=== PATIENT | male | born 1975 | race Caucasian/White ===

== ENCOUNTER → 2017-04-09 | Outpatient (REF) | payer OTHER ==
[2017-04-09 20:25] LABS: ALBUMIN 3.8 GM/DL (3.2-5.2); ALBUMIN/GLOBULIN RATIO 1.15 (1.00-1.93); ALKALINE PHOSPHATASE 65 U/L (45-117); ALT/SGPT 43 U/L (12-78); ANION GAP 6 MEQ/L (8-16); AST/SGOT 23 U/L (15-37); BILIRUBIN,TOTAL 0.3 MG/DL (0.2-1.0); BLOOD UREA NITROGEN 14 MG/DL (7-18); CALCIUM LEVEL 8.8 MG/DL (8.5-10.1); CARBON DIOXIDE LEVEL 29 MEQ/L (21-32); CHLORIDE LEVEL 106 MEQ/L (98-107); CREATININE FOR GFR 1.23 MG/DL (0.70-1.30); GLOMERULAR FILTRATION RATE > 60.0 (>60); GLUCOSE, FASTING 85 MG/DL (70-105); POTASSIUM SERUM 4.4 MEQ/L (3.5-5.1); SODIUM LEVEL 141 MEQ/L (136-145); TOTAL PROTEIN 7.1 GM/DL (6.4-8.2); URIC ACID 8.6 MG/DL (3.5-7.2)
[2017-04-09 20:33] LABS: BASO # 0.1 K/mm3 (0.0-0.2); BASO % 0.6 % (0.0-1.0); EOS # 0.6 K/mm3 (0.0-0.50); EOS % 6.4 % (0.0-3.0); LARGE UNSTAINED CELL # 0.2 K/mm3 (0.0-0.4); LYMPH # 1.8 K/mm3 (1.5-4.5); LYMPH % 18.1 % (24.0-44.0); MEAN CORPUSCULAR HEMOGLOBIN 31.9 pg (27.0-33.0); MEAN CORPUSCULAR HGB CONC 34.7 g/dl (32.0-36.5); MONO # 0.8 K/mm3 (0.0-0.8); MONO % 7.4 % (0.0-5.0); NEUTROPHILS # 6.6 K/mm3 (1.8-7.7); NEUTROPHILS % 65.4 % (36.0-66.0); PLATELET COUNT, AUTOMATED 283 k/mm3 (150-450)
[2017-04-09 22:00] LABS: ERYTHROCYTE SEDIMENTATION RATE 6 mm/hr (0-15)
== END ==
LOC: M SFHCLERA 16:24
PROVIDERS: ATTEND Nurse Practitioner Family
DX: M79.672 Pain in left foot (principal)

== ENCOUNTER → 2017-04-09 | Outpatient (CLI) | payer OTHER ==
--- NOTE | 2017-04-09 17:14 | REP ---
LEFT FOOT, FOUR VIEWS: HISTORY: Pain. There is no acute fracture or dislocation. The joint spaces are normal in appearance. IMPRESSION: There is no acute fracture or dislocation. Signed by Breezy Melvin MD 04/10/2017 08:38 A
== END ==
LOC: M LRY 16:28
PROVIDERS: ATTEND Nurse Practitioner Family
DX: M79.672 Pain in left foot (principal)

== ENCOUNTER → 2019-11-26 | Outpatient (CLI) | payer OTHER ==
[2019-11-26 06:41] LABS: BASO # 0.1 10^3/uL (0.0-0.2); BASO % 0.6 % (0.0-1.0); EOS # 0.5 10^3/uL (0.0-0.5); HEMATOCRIT 47.2 % (42.0-52.0); HEMOGLOBIN 15.7 g/dl (13.5-17.5); LYMPH # 2.1 10^3/uL (1.5-5.0); LYMPH % 22.5 % (24.0-44.0); MEAN CORPUSCULAR HEMOGLOBIN 30.9 pg (27.0-33.0); MEAN CORPUSCULAR HGB CONC 33.3 g/dl (32.0-36.5); MEAN CORPUSCULAR VOLUME 92.9 fl (80.0-96.0); MONO # 0.9 10^3/uL (0.0-0.8); MONO % 9.8 % (0.0-5.0); NEUTROPHILS # 5.7 10^3/uL (1.5-8.5); NEUTROPHILS % 61.2 % (36.0-66.0); PLATELET COUNT, AUTOMATED 313 10^3/uL (150-450); RED BLOOD COUNT 5.08 10^6/uL (4.30-6.10); WHITE BLOOD COUNT 9.3 10^3/uL (4.0-10.0)
[2019-11-26 07:06] LABS: ALT/SGPT 43 U/L (12-78); BILIRUBIN,TOTAL 0.4 MG/DL (0.2-1.0); BLOOD UREA NITROGEN 15 MG/DL (7-18); CALCIUM LEVEL 9.5 MG/DL (8.5-10.1); CARBON DIOXIDE LEVEL 29 MEQ/L (21-32); CHLORIDE LEVEL 105 MEQ/L (98-107); CREATININE FOR GFR 1.23 MG/DL (0.70-1.30); GLOMERULAR FILTRATION RATE > 60.0 (>60); GLUCOSE, FASTING 98 MG/DL (70-100); POTASSIUM SERUM 4.3 MEQ/L (3.5-5.1); SODIUM LEVEL 142 MEQ/L (136-145); TOTAL PROTEIN 7.1 GM/DL (6.4-8.2); URIC ACID 8.4 MG/DL (3.5-7.2)
== END ==
LOC: M LAB 06:07 → MERGE 06:07
PROVIDERS: ATTEND Family Medicine
DX: M10.041 Idiopathic gout, right hand (principal)

== ENCOUNTER → 2020-08-08 | Outpatient (CLI) | payer OTHER ==
[2020-08-08 06:56] LABS: BASO # 0.1 10^3/uL (0.0-0.2); BASO % 0.8 % (0.0-1.0); EOS # 0.4 10^3/uL (0.0-0.5); EOS % 6.3 % (0.0-3.0); HEMATOCRIT 43.9 % (42.0-52.0); HEMOGLOBIN 15.1 g/dl (13.5-17.5); LYMPH # 1.9 10^3/uL (1.5-5.0); LYMPH % 29.2 % (24.0-44.0); MEAN CORPUSCULAR HEMOGLOBIN 30.6 pg (27.0-33.0); MEAN CORPUSCULAR HGB CONC 34.4 g/dl (32.0-36.5); MEAN CORPUSCULAR VOLUME 88.9 fl (80.0-96.0); MONO # 0.9 10^3/uL (0.0-0.8); MONO % 13.3 % (0.0-5.0); NEUTROPHILS # 3.2 10^3/uL (1.5-8.5); NEUTROPHILS % 49.8 % (36.0-66.0); PLATELET COUNT, AUTOMATED 297 10^3/uL (150-450); RED BLOOD COUNT 4.94 10^6/uL (4.30-6.10); WHITE BLOOD COUNT 6.5 10^3/uL (4.0-10.0)
[2020-08-08 07:33] LABS: ALBUMIN 3.6 GM/DL (3.2-5.2); ALT/SGPT 45 U/L (12-78); BILIRUBIN,TOTAL 0.5 MG/DL (0.2-1.0); BLOOD UREA NITROGEN 15 MG/DL (7-18); CALCIUM LEVEL 9.1 MG/DL (8.5-10.1); CARBON DIOXIDE LEVEL 28 MEQ/L (21-32); CHLORIDE LEVEL 108 MEQ/L (98-107); CREATININE FOR GFR 1.34 MG/DL (0.70-1.30); GLOMERULAR FILTRATION RATE > 60.0 (>60); GLUCOSE, FASTING 102 MG/DL (70-100); SODIUM LEVEL 142 MEQ/L (136-145); TOTAL PROTEIN 6.6 GM/DL (6.4-8.2); URIC ACID 4.4 MG/DL (3.5-7.2)
== END ==
LOC: M LAB 06:14
PROVIDERS: ATTEND Internal Medicine
DX: M1A.9XX1 Chronic gout, unspecified, with tophus (tophi) (principal)

== ENCOUNTER → 2021-01-23 | Outpatient (CLI) | payer OTHER ==
[2021-01-23 06:43] LABS: BASO # 0.1 10^3/uL (0.0-0.2); BASO % 0.7 % (0.0-1.0); EOS # 0.4 10^3/uL (0.0-0.5); EOS % 5.3 % (0.0-3.0); HEMATOCRIT 43.8 % (42.0-52.0); HEMOGLOBIN 14.7 g/dl (13.5-17.5); LYMPH % 27.4 % (24.0-44.0); MEAN CORPUSCULAR HEMOGLOBIN 30.1 pg (27.0-33.0); MEAN CORPUSCULAR HGB CONC 33.6 g/dl (32.0-36.5); MEAN CORPUSCULAR VOLUME 89.8 fl (80.0-96.0); MONO # 0.9 10^3/uL (0.0-0.8); MONO % 12.8 % (2.0-8.0); NEUTROPHILS # 3.9 10^3/uL (1.5-8.5); NEUTROPHILS % 53.3 % (36.0-66.0); PLATELET COUNT, AUTOMATED 278 10^3/uL (150-450); RED BLOOD COUNT 4.88 10^6/uL (4.30-6.10); WHITE BLOOD COUNT 7.3 10^3/uL (4.0-10.0)
[2021-01-23 07:17] LABS: ALBUMIN 3.9 GM/DL (3.2-5.2); ALT/SGPT 55 U/L (12-78); BILIRUBIN,TOTAL 0.5 MG/DL (0.2-1.0); BLOOD UREA NITROGEN 17 MG/DL (7-18); CALCIUM LEVEL 9.3 MG/DL (8.5-10.1); CARBON DIOXIDE LEVEL 27 MEQ/L (21-32); CHLORIDE LEVEL 107 MEQ/L (98-107); CREATININE FOR GFR 1.14 MG/DL (0.70-1.30); GLOMERULAR FILTRATION RATE > 60.0 (>60); GLUCOSE, FASTING 106 MG/DL (70-100); SODIUM LEVEL 141 MEQ/L (136-145); TOTAL PROTEIN 6.9 GM/DL (6.4-8.2); URIC ACID 4.6 MG/DL (3.5-7.2)
== END ==
LOC: M LAB 06:13
PROVIDERS: ATTEND Internal Medicine
DX: M1A.9XX1 Chronic gout, unspecified, with tophus (tophi) (principal)

== ENCOUNTER → 2023-01-29 | Outpatient (CLI) | payer OTHER ==
[2023-01-29 06:36] LABS: BASO # 0.1 10^3/uL (0.0-0.2); BASO % 0.6 % (0.0-1.0); EOS # 0.5 10^3/uL (0.0-0.5); EOS % 5.8 % (0.0-3.0); HEMATOCRIT 45.1 % (42.0-52.0); HEMOGLOBIN 15.6 g/dl (13.5-17.5); LYMPH # 2.3 10^3/uL (1.5-5.0); LYMPH % 28.7 % (24.0-44.0); MEAN CORPUSCULAR HEMOGLOBIN 31.3 pg (27.0-33.0); MEAN CORPUSCULAR HGB CONC 34.6 g/dl (32.0-36.5); MEAN CORPUSCULAR VOLUME 90.6 fl (80.0-96.0); MONO # 0.9 10^3/uL (0.0-0.8); MONO % 11.4 % (2.0-8.0); NEUTROPHILS # 4.2 10^3/uL (1.5-8.5); NEUTROPHILS % 52.9 % (36.0-66.0); PLATELET COUNT, AUTOMATED 282 10^3/uL (150-450); RED BLOOD COUNT 4.98 10^6/uL (4.30-6.10)
[2023-01-29 07:01] LABS: URIC ACID 4.5 MG/DL (3.7-9.2)
[2023-01-29 07:05] LABS: ALBUMIN 4.1 G/DL (3.2-5.2); ALKALINE PHOSPHATASE 59 U/L (46-116); ALT/SGPT 48 U/L (7.0-40); AST/SGOT 32 U/L (<34); BILIRUBIN,TOTAL 0.8 MG/DL (0.3-1.2); BLOOD UREA NITROGEN 19 MG/DL (9-23); CALCIUM LEVEL 9.4 MG/DL (8.5-10.1); CARBON DIOXIDE LEVEL 29 MMOL/L (20-31); CHLORIDE LEVEL 103 MMOL/L (98-107); CHOLESTEROL LEVEL 222 MG/DL (<200); CHOLESTEROL RISK RATIO 4.84 (<5); CREATININE FOR GFR 1.02 MG/DL (0.70-1.30); GLOMERULAR FILTRATION RATE > 60.0 (>60); GLUCOSE, FASTING 96 MG/DL (60-100); HDL CHOLESTEROL 45.8 MG/DL (>40); LDL CHOLESTEROL 101.6 MG/DL (<100); NON-HDL-C 176.2 MG/DL; POTASSIUM SERUM 4.3 MMOL/L (3.5-5.1); SODIUM LEVEL 139 MMOL/L (136-145); TRIGLYCERIDES LEVEL 373 MG/DL (<150)
== END ==
LOC: M LAB 06:01
PROVIDERS: ATTEND Family Medicine
DX: Z00.00 Encounter for general adult medical examination without abnormal findings (principal); M10.9 Gout, unspecified